=== PATIENT | male | born 1985 | race Two or more races ===

== ENCOUNTER 2022-05-02 20:44 | Emergency (ER) | payer OTHER ==
[~2022-05-02] VITALS: Ht 172.7 cm; Wt 90.7 kg
[2022-05-02] MEDS ORDERED: LANTUS SOL100 UNIT/1 (20:59)
[2022-05-02] MEDS ORDERED: HUMALOG100 UNIT/2 (20:59)
[2022-05-03] MEDS ORDERED: ANUSOL-HC25 MG RECTAL (02:47)
[2022-05-03] MEDS ORDERED: MIRALAX510 GM PO ×2 (02:47→02:48)
== END 2022-05-03 02:50 ==
LOC: ER 20:44
DX: K64.8 Other hemorrhoids (principal)